=== PATIENT | female | born 1970 | race Caucasian/White ===

== ENCOUNTER 2021-09-16 16:53 | Emergency (ER) | payer BC ==
[2021-09-16 18:24] VITALS: RESP 18
--- NOTE | 2021-09-16 19:31 | ED ---
General Adult HPI - General Chief complaint: Upper Respiratory Infection Stated complaint: covid+, infusion Time Seen by Provider: 09/16/21 19:13 Source: patient, RN notes reviewed Mode of arrival: ambulatory Limitations: no limitations - History of Present Illness Initial comments: This a 50-year-old female presents emergency Department with chief complaint of needing Covid antibodies. Patient states her symptoms 2 days ago. Patient states that she tested positive today urgent care. Patient states she has mild cough congestion body aches. Patient states she's had known exposures. Patient states that she has not back pain currently. Patient offers no complaints. - Related Data Allergies Allergy/AdvReac Type Severity Reaction Status Date / Time tetanus and diphtheria Allergy Unknown Verified 09/16/21 18:25 toxoids tetanus immune globulin Allergy Unknown Verified 09/16/21 18:25 tetanus toxoid, adsorbed Allergy Unknown Verified 09/16/21 18:25 Tetanus Vaccines and Toxoid Allergy Unknown Verified 09/16/21 18:25 sulfamethoxazole AdvReac Nausea & Verified 09/16/21 18:25 [From Bactrim] Vomiting trimethoprim [From Bactrim] AdvReac Nausea & Verified 09/16/21 18:25 Vomiting Review of Systems ROS Statement: Those systems with pertinent positive or pertinent negative responses have been documented in the HPI. ROS Other: All systems not noted in ROS Statement are negative. Past Medical History Additional Past Medical History / Comment(s): breast CA 2020 History of Any Multi-Drug Resistant Organisms: None Reported Past Surgical History: Section, Hysterectomy Past Psychological History: No Psychological Hx Reported Smoking Status: Never smoker Past Alcohol Use History: Occasional Past Drug Use History: None Reported General Exam Limitations: no limitations General appearance: alert, in no apparent distress Head exam: Present: atraumatic, normocephalic, normal inspection Eye exam: Present: normal appearance, PERRL, EOMI. Absent: scleral icterus, conjunctival injection, periorbital swelling ENT exam: Present: normal exam, mucous membranes moist Neck exam: Present: normal inspection, full ROM. Absent: tenderness, meningismus, lymphadenopathy Respiratory exam: Present: normal lung sounds bilaterally. Absent: respiratory distress, wheezes, rales, rhonchi, stridor Cardiovascular Exam: Present: regular rate, normal rhythm, normal heart sounds. Absent: systolic murmur, diastolic murmur, rubs, gallop, clicks Course Vital Signs 09/16/21 18:19 Temperature 99.3 F Pulse Rate 89 Respiratory 18 Rate Blood Pressure 110/53 O2 Sat by Pulse 100 Oximetry Medical Decision Making - Medical Decision Making Patient will receive monoclonal antibodies and discharged in stable condition. Disposition Clinical Impression: COVID-19 Disposition: HOME SELF-CARE Condition: Stable Instructions (If sedation given, give patient instructions): Coronavirus Disease 2019 (COVID-19) Additional Instructions: Please return to the Emergency Department if symptoms worsen or any other concerns. Is patient prescribed a controlled substance at d/c from ED?: No Referrals: Amos Brantley MD [Primary Care Provider] - 1-2 days Time of Disposition: 19:31
[2021-09-16] MEDS ORDERED: SODIUM CHLORIDE 0.9% 50 ML IVPB ONE (19:45)
[2021-09-16] MEDS ORDERED: CASIRIVIMAB/IMDEVIMAB (EUA) 1,200 MG in SODIUM CHLORIDE 0.9% 100 ML IVPB ONE (19:45)
[2021-09-16 22:32] VITALS: BP 143/66; PULSE 85; TEMP 99.7
== END 2021-09-16 21:56 | disposition home or self-care (01) ==
LOC: EC 16:53
DX: U07.1 COVID-19 (principal); Z88.1 Allergy status to other antibiotic agents; Z88.2 Allergy status to sulfonamides; Z85.3 Personal history of malignant neoplasm of breast
CPT/HCPCS: 96365 ×2; 99283 ×2; Q0243